=== PATIENT | female | born 1940 | race Caucasian/White ===

== ENCOUNTER 2021-07-01 14:16 | Emergency (ER) | payer MEDICARE, BC ==
[2021-07-01 14:47] VITALS: PULSE 67
[2021-07-01 14:55] LABS: CHLORIDE,CL 104 mEq/L (98-106); SODIUM,NA 141 mEq/L (136-145)
[2021-07-01 15:10] VITALS: BP 160/82
== END 2021-07-01 15:43 | disposition home or self-care (01) ==
LOC: CC.ED 14:16
DX: R42 Dizziness and giddiness (principal); Z88.5 Allergy status to narcotic agent; Z88.1 Allergy status to other antibiotic agents; Z88.2 Allergy status to sulfonamides
CPT/HCPCS: 36415; 70450; 71046; 80053; 81001; 84484; 85025; 86140; 93005; 93010; 99284; 99284-25

== ENCOUNTER 2021-08-22 07:57 | Emergency (ER) | payer MEDICARE, BC ==
[2021-08-22 08:02] VITALS: PULSE 75
[2021-08-22] MEDS ORDERED: Albuterol/Ipratropium 3.0-0.5 MG/3 ML Neb Soln NEB ONE ×2 (08:10→08:57)
[2021-08-22] MEDS ORDERED: Sodium Chloride 0.9% 10 ML Syringe FLUSH PRN (08:54)
[2021-08-22] MEDS ORDERED: methylPREDNISolone Sodium Succinate 125 MG/2 ML SDV IVPUSH STA (08:55)
[2021-08-22 09:49] VITALS: BP 154/76
== END 2021-08-22 11:00 | disposition home or self-care (01) ==
LOC: CC.ED 07:57
DX: J40 Bronchitis, not specified as acute or chronic (principal); I11.0 Hypertensive heart disease with heart failure; I50.9 Heart failure, unspecified; E78.00 Pure hypercholesterolemia, unspecified; E03.9 Hypothyroidism, unspecified; Z88.5 Allergy status to narcotic agent; Z88.1 Allergy status to other antibiotic agents; Z79.82 Long term (current) use of aspirin; Z79.899 Other long term (current) drug therapy; Z86.16 Personal history of COVID-19; Z20.822 Contact with and (suspected) exposure to COVID-19
CPT/HCPCS: 36415; 71046; 80053; 81001; 83605; 83880; 85025; 87040; 87086; 87804; 94640; 96374; 99284; 99284-25; J2930; J7620-GY; U0002

== ENCOUNTER → 2022-07-20 | Day surgery (SDC) | payer MEDICARE, BC ==
[~2022-07-20] MED LIST: Ketamine 200 MG/20 ML MDV ONE; Lactated Ringers 1,000 ML IV SCH; Phenylephrine 1% 10 MG/ML SDV ONE; Propofol 200 MG/20 ML SDV ONE; fentaNYL 50 MCG/ML SDV ONE
[2022-07-20 14:16] VITALS: BP 149/60; PULSE 55
== END ==
LOC: CC.SDS 11:43
PROVIDERS: ATTEND Family Medicine
DX: K57.30 Diverticulosis of large intestine without perforation or abscess without bleeding (principal); K64.8 Other hemorrhoids; J45.909 Unspecified asthma, uncomplicated; K21.9 Gastro-esophageal reflux disease without esophagitis; I10 Essential (primary) hypertension; E78.5 Hyperlipidemia, unspecified; Z88.5 Allergy status to narcotic agent; Z88.2 Allergy status to sulfonamides; Z79.899 Other long term (current) drug therapy; Z79.890 Hormone replacement therapy; Z98.890 Other specified postprocedural states
CPT/HCPCS: J2370; J2704; J3010; J3490; J7120

== ENCOUNTER 2024-01-20 13:39 | Emergency (ER) | payer MEDICARE, BC ==
[2024-01-20 14:00] VITALS: BP 157/72; PULSE 67
[2024-01-20 14:25] LABS: BASOPHILS ABSOLUTE AUTO 0.01 10^3/uL (0.00-0.50); BASOPHILS PERCENT AUTO 0.1 % (0-1); EOSINOPHILS ABSOLUTE AUTO 0.07 10^3/uL (0.00-1.50); HEMATOCRIT 38.7 % (37.0-47.0); HEMOGLOBIN 12.7 g/dL (12.0-16.0); IMMATURE GRAN ABSOLUTE AUTO 0.01 10^3/uL (0.00-0.49); IMMATURE GRAN PERCENT AUTO 0.1 % (0.0-4.9); LYMPHOCYTES ABSOLUTE AUTO 1.95 10^3/uL (0.60-5.00); LYMPHOCYTES PERCENT AUTO 27.5 % (24-44); MEAN CORPUSCULAR HEMOGLOBIN 30.8 pg (27.0-32.0); MEAN CORPUSCULAR HGB CONC 32.8 g/dL (32.0-36.0); MEAN CORPUSCULAR VOLUME 93.9 fL (83.0-97.0); MONOCYTES ABSOLUTE AUTO 0.57 10^3/uL (0.00-1.50); MONOCYTES PERCENT AUTO 8.1 % (0-10); NEUTROPHILS ABSOLUTE AUTO 4.47 x10^3/uL (1.80-8.00); NEUTROPHILS PERCENT AUTO 63.2 % (41-71); PLATELET COUNT,PLT 319 10^3/uL (150-400); RED BLOOD CELL COUNT 4.12 x10^6/uL (4.00-5.50); WHITE BLOOD CELL COUNT,WBC 7.1 10^3/uL (4.0-11.0)
[2024-01-20 14:30] LABS: APPEARANCE,URINE CLEAR (CLEAR); BILIRUBIN,URINE NEGATIVE (NEGATIVE); COLOR,URINE YELLOW (YELLOW); GLUCOSE,URINE NEGATIVE (NEGATIVE); KETONES,URINE NEGATIVE (NEGATIVE); LEUKOCYTE ESTERASE,URINE NEGATIVE (NEGATIVE); NITRITE,URINE NEGATIVE (NEGATIVE); OCCULT BLOOD,URINE NEGATIVE (NEGATIVE); PROTEIN,URINE NEGATIVE (NEGATIVE); UROBILINOGEN,URINE 0.2 EU/dL (0.2-1.0)
[2024-01-20 14:40] LABS: ALBUMIN 3.8 g/dL (3.4-5.0); BILIRUBIN TOTAL 0.3 mg/dL (0.0-1.0); CALCIUM 9.9 mg/dL (8.4-10.1); CREATININE 1.4 mg/dL (0.6-1.0); EST CRCL DRUG DOSING (CG) 24.3 mL/min; MAGNESIUM 1.9 mg/dL (1.8-2.4); POTASSIUM,K 4.5 mEq/L (3.5-5.0); PROTEIN TOTAL,TP 7.1 g/dL (6.4-8.2)
== END 2024-01-20 16:30 | disposition home or self-care (01) ==
LOC: CC.ED 13:39
DX: R42 Dizziness and giddiness (principal); I11.0 Hypertensive heart disease with heart failure; I50.9 Heart failure, unspecified; E78.00 Pure hypercholesterolemia, unspecified; E03.9 Hypothyroidism, unspecified; Z86.16 Personal history of COVID-19; Z90.49 Acquired absence of other specified parts of digestive tract; Z90.710 Acquired absence of both cervix and uterus; Z79.899 Other long term (current) drug therapy; Z79.82 Long term (current) use of aspirin; Z79.891 Long term (current) use of opiate analgesic; Z88.5 Allergy status to narcotic agent; Z88.2 Allergy status to sulfonamides; Z88.8 Allergy status to other drugs, medicaments and biological substances
CPT/HCPCS: 36415; 70450; 71046; 80053; 81003; 83735; 83880; 84484; 85025; 87428-QW; 93010; 99284; 99285

== ENCOUNTER 2024-02-19 09:33 | Emergency (ER) | payer MEDICARE, BC ==
[2024-02-19 10:32] LABS: EOSINOPHILS ABSOLUTE AUTO 0.03 10^3/uL (0.00-1.50); EOSINOPHILS PERCENT AUTO 0.3 % (0-6); HEMATOCRIT 39.9 % (37.0-47.0); HEMOGLOBIN 13.5 g/dL (12.0-16.0); IMMATURE GRAN ABSOLUTE AUTO 0.02 10^3/uL (0.00-0.49); IMMATURE GRAN PERCENT AUTO 0.2 % (0.0-4.9); LYMPHOCYTES ABSOLUTE AUTO 1.95 10^3/uL (0.60-5.00); LYMPHOCYTES PERCENT AUTO 20.8 % (24-44); MEAN CORPUSCULAR HGB CONC 33.8 g/dL (32.0-36.0); MEAN CORPUSCULAR VOLUME 91.7 fL (83.0-97.0); MONOCYTES PERCENT AUTO 6.4 % (0-10); NEUTROPHILS ABSOLUTE AUTO 6.79 x10^3/uL (1.80-8.00); NEUTROPHILS PERCENT AUTO 72.3 % (41-71); PLATELET COUNT,PLT 312 10^3/uL (150-400); RED BLOOD CELL COUNT 4.35 x10^6/uL (4.00-5.50); WHITE BLOOD CELL COUNT,WBC 9.4 10^3/uL (4.0-11.0)
[2024-02-19 10:42] LABS: APPEARANCE,URINE CLEAR (CLEAR); BILIRUBIN,URINE NEGATIVE (NEGATIVE); COLOR,URINE YELLOW (YELLOW); GLUCOSE,URINE NEGATIVE (NEGATIVE); KETONES,URINE NEGATIVE (NEGATIVE); LEUKOCYTE ESTERASE,URINE NEGATIVE (NEGATIVE); NITRITE,URINE NEGATIVE (NEGATIVE); OCCULT BLOOD,URINE NEGATIVE (NEGATIVE); PROTEIN,URINE NEGATIVE (NEGATIVE); UROBILINOGEN,URINE 0.2 EU/dL (0.2-1.0)
[2024-02-19 10:53] LABS: ALANINE AMINOTRANSFERASE,ALT 19 U/L (12-78); ALBUMIN 4.1 g/dL (3.4-5.0); ALKALINE PHOSPHATASE 37 U/L (46-116); ASPARTATE AMNIOTRANSFERASE,AST 28 U/L (15-37); BILIRUBIN TOTAL 0.5 mg/dL (0.0-1.0); BLOOD UREA NITROGEN,BUN 23 mg/dL (7-18); C-REACTIVE PROTEIN < 0.50 mg/dL (<=0.50); CALCIUM 9.9 mg/dL (8.4-10.1); CARBON DIOXIDE,CO2 27 mmol/L (21-32); CHLORIDE,CL 98 mEq/L (98-106); CREATININE 1.1 mg/dL (0.6-1.0); EST CRCL DRUG DOSING (CG) 32.29 mL/min; ESTIMATED GFR 49 mL/min (>=60); GLUCOSE RANDOM 102 mg/dL (75-99); POTASSIUM,K 4.4 mEq/L (3.5-5.0); PRO B-TYPE NATRIUR PEPT,BNPPRO 216 pg/mL (0-1000); PROTEIN TOTAL,TP 7.4 g/dL (6.4-8.2); SODIUM,NA 133 mEq/L (136-145)
[2024-02-19 12:08] LABS: TSH ULTRASENSITIVE 2.88 uIU/mL (0.36-5.60)
[2024-02-19] MEDS: Iopamidol 755 Mg/ML 100 ML Bottle IVPUSH ONE (12:08)
[2024-02-19 12:13] VITALS: BP 168/61; PULSE 59
== END 2024-02-19 14:15 | disposition home or self-care (01) ==
LOC: CC.ED 09:33
DX: R42 Dizziness and giddiness (principal); R06.02 Shortness of breath; R53.1 Weakness; I13.0 Hypertensive heart and chronic kidney disease with heart failure and stage 1 through stage 4 chronic kidney disease, or unspecified chronic kidney disease; I50.9 Heart failure, unspecified; M19.90 Unspecified osteoarthritis, unspecified site; E78.00 Pure hypercholesterolemia, unspecified; E03.9 Hypothyroidism, unspecified; Z88.2 Allergy status to sulfonamides; Z88.8 Allergy status to other drugs, medicaments and biological substances; Z79.82 Long term (current) use of aspirin; Z79.890 Hormone replacement therapy; Z79.899 Other long term (current) drug therapy; Z90.49 Acquired absence of other specified parts of digestive tract; Z90.710 Acquired absence of both cervix and uterus
CPT/HCPCS: 36415; 71045; 71275; 80053; 81003; 83880; 84443; 84484; 85025; 85379; 86140; 87428-QW; 93005; 99285; Q9967

== ENCOUNTER 2024-03-18 07:32 | Inpatient (IN) | payer MEDICARE, BC ==
[2024-03-18 08:47] LABS: BASOPHILS ABSOLUTE AUTO 0.01 10^3/uL (0.00-0.50); BASOPHILS PERCENT AUTO 0.1 % (0-1); HEMATOCRIT 39.7 % (37.0-47.0); HEMOGLOBIN 13.2 g/dL (12.0-16.0); IMMATURE GRAN ABSOLUTE AUTO 0.05 10^3/uL (0.00-0.49); IMMATURE GRAN PERCENT AUTO 0.4 % (0.0-4.9); LYMPHOCYTES ABSOLUTE AUTO 1.09 10^3/uL (0.60-5.00); LYMPHOCYTES PERCENT AUTO 7.9 % (24-44); MEAN CORPUSCULAR HEMOGLOBIN 32.4 pg (27.0-32.0); MEAN CORPUSCULAR HGB CONC 33.2 g/dL (32.0-36.0); MEAN CORPUSCULAR VOLUME 97.3 fL (83.0-97.0); MONOCYTES ABSOLUTE AUTO 0.59 10^3/uL (0.00-1.50); MONOCYTES PERCENT AUTO 4.3 % (0-10); NEUTROPHILS ABSOLUTE AUTO 12.13 x10^3/uL (1.80-8.00); NEUTROPHILS PERCENT AUTO 87.3 % (41-71); PLATELET COUNT,PLT 375 10^3/uL (150-400); RED BLOOD CELL COUNT 4.08 x10^6/uL (4.00-5.50); WHITE BLOOD CELL COUNT,WBC 13.9 10^3/uL (4.0-11.0)
[2024-03-18 08:57] LABS: ALBUMIN 2.8 g/dL (3.4-5.0); BILIRUBIN TOTAL 0.5 mg/dL (0.0-1.0); CALCIUM 8.7 mg/dL (8.4-10.1); CREATININE 1.7 mg/dL (0.6-1.0); EST CRCL DRUG DOSING (CG) 19.65 mL/min; MAGNESIUM 2.2 mg/dL (1.8-2.4); POTASSIUM,K 3.5 mEq/L (3.5-5.0); PROTEIN TOTAL,TP 6.5 g/dL (6.4-8.2)
[2024-03-18 10:03] LABS: APPEARANCE,URINE CLEAR (CLEAR); BILIRUBIN,URINE NEGATIVE (NEGATIVE); COLOR,URINE YELLOW (YELLOW); GLUCOSE,URINE NEGATIVE (NEGATIVE); KETONES,URINE NEGATIVE (NEGATIVE); LEUKOCYTE ESTERASE,URINE SMALL (NEGATIVE); NITRITE,URINE NEGATIVE (NEGATIVE); OCCULT BLOOD,URINE NEGATIVE (NEGATIVE); PROTEIN,URINE NEGATIVE (NEGATIVE); UROBILINOGEN,URINE 0.2 EU/dL (0.2-1.0)
[2024-03-18] MEDS: Sodium Chloride 0.9% 1,000 ML IV SCH (10:03)
[2024-03-18 10:07] LABS: BACTERIA,URINE RARE /HPF (NOT SEEN); EPITHELIAL CELLS,URINE RARE /HPF (NOT SEEN); MUCUS,URINE NOT SEEN /HPF (NOT SEEN); RBC,URINE NOT SEEN /HPF (0-5); WBC,URINE 0-5 /HPF (0-5)
[2024-03-18] MEDS ORDERED: Ondansetron 4 MG Tab.DIS PO PRN (11:05)
[2024-03-18] MEDS ORDERED: Acetaminophen 325 MG Tab PO PRN (11:05)
[2024-03-18] MEDS ORDERED: Ondansetron 4 MG/2 ML SDV IV PRN (11:05)
[2024-03-18] MEDS ORDERED: Albuterol 6.7 GM Inhaler INH PRN (11:05)
[2024-03-18] MEDS ORDERED: Docusate Sodium 100 MG Cap PO PRN (11:05)
[2024-03-18] MEDS: Psyllium with Sucrose Powder 3.4 GM Packet PO SCH ×2 (11:49→15:58)
[2024-03-18] MEDS: Losartan 100 MG Tab PO SCH ×2 (12:17→15:57)
[2024-03-18] MEDS: Meclizine 12.5 MG Tab PO PRN (12:19)
[2024-03-18] MEDS: Levothyroxine 50 MCG Tab PO SCH ×2 (12:19→15:58)
[2024-03-18] MEDS: Multivitamin Tab PO PRN (12:20)
[2024-03-18] MEDS: Spironolactone 25 MG Tab PO SCH ×2 (12:20→15:57)
[2024-03-18] MEDS: Furosemide 20 MG Tab PO SCH ×2 (12:20→15:58)
[2024-03-18] MEDS: Atenolol 50 MG Tab PO SCH ×2 (12:21→15:58)
[2024-03-18] MEDS: Fenofibrate 160 MG Tab PO SCH ×2 (12:21→15:58)
[2024-03-18] MEDS: Formoterol/Mometasone 100-5 MCG 8.8 GM Inhaler INH SCH ×2 (12:21→15:58)
[2024-03-18] MEDS: guaiFENesin 200 MG Tab PO SCH (14:21)
[2024-03-18] MEDS: [UNRECOGNIZED DRUG - OTHER] PO SCH (15:57)
[2024-03-18] MEDS: Enoxaparin 30 MG/0.3 ML Syringe SUBCUT SCH (20:26)
[2024-03-18] MEDS: PARoxetine 20 MG Tab PO SCH (20:27)
[2024-03-18] MEDS: Lactobacillus Rhamnosus GG (Probiotic) Cap PO SCH (20:27)
[2024-03-18] MEDS: Aspirin 325 MG Tab.EC PO SCH (20:27)
[2024-03-18] MEDS: NIACIN 500 MG PO SCH (21:43)
[2024-03-19 07:41] LABS: BASOPHILS ABSOLUTE AUTO 0.03 10^3/uL (0.00-0.50); BASOPHILS PERCENT AUTO 0.5 % (0-1); EOSINOPHILS ABSOLUTE AUTO 0.09 10^3/uL (0.00-1.50); EOSINOPHILS PERCENT AUTO 1.6 % (0-6); HEMATOCRIT 34.5 % (37.0-47.0); HEMOGLOBIN 11.4 g/dL (12.0-16.0); IMMATURE GRAN ABSOLUTE AUTO 0.01 10^3/uL (0.00-0.49); IMMATURE GRAN PERCENT AUTO 0.2 % (0.0-4.9); LYMPHOCYTES PERCENT AUTO 27.9 % (24-44); MEAN CORPUSCULAR HEMOGLOBIN 31.2 pg (27.0-32.0); MEAN CORPUSCULAR VOLUME 94.5 fL (83.0-97.0); MONOCYTES ABSOLUTE AUTO 0.63 10^3/uL (0.00-1.50); NEUTROPHILS ABSOLUTE AUTO 3.38 x10^3/uL (1.80-8.00); NEUTROPHILS PERCENT AUTO 58.8 % (41-71); PLATELET COUNT,PLT 285 10^3/uL (150-400); RED BLOOD CELL COUNT 3.65 x10^6/uL (4.00-5.50); WHITE BLOOD CELL COUNT,WBC 5.7 10^3/uL (4.0-11.0)
[2024-03-19 07:53] LABS: ALBUMIN 2.9 g/dL (3.4-5.0); BILIRUBIN TOTAL 0.4 mg/dL (0.0-1.0); C-REACTIVE PROTEIN 0.78 mg/dL (<=0.50); CALCIUM 8.8 mg/dL (8.4-10.1); CREATININE 0.9 mg/dL (0.6-1.0); EST CRCL DRUG DOSING (CG) 37.12 mL/min; POTASSIUM,K 3.9 mEq/L (3.5-5.0); PROTEIN TOTAL,TP 5.9 g/dL (6.4-8.2)
[2024-03-20 07:55] VITALS: BP 173/66; PULSE 61
== END 2024-03-20 09:15 | DRG 684 ==
LOC: SUPCPDRO 07:32 → CC.ED 07:32 → CC.MS 10:13 → UNDOADMIN 10:40 → CC.MS 10:40
PROVIDERS: ADMIT Physician Assistant Medical; ATTEND Physician Assistant Medical
DX: N17.9 Acute kidney failure, unspecified (principal); R13.10 Dysphagia, unspecified; I11.0 Hypertensive heart disease with heart failure; E78.00 Pure hypercholesterolemia, unspecified; I10 Essential (primary) hypertension; Z88.5 Allergy status to narcotic agent; I50.9 Heart failure, unspecified; K58.9 Irritable bowel syndrome, unspecified; F32.A Depression, unspecified; F41.9 Anxiety disorder, unspecified; E03.9 Hypothyroidism, unspecified; D64.9 Anemia, unspecified; Z96.659 Presence of unspecified artificial knee joint; E86.0 Dehydration; Z79.82 Long term (current) use of aspirin; Z79.51 Long term (current) use of inhaled steroids; Z79.1 Long term (current) use of non-steroidal anti-inflammatories (NSAID); Z79.899 Other long term (current) drug therapy; Z90.89 Acquired absence of other organs; Z90.49 Acquired absence of other specified parts of digestive tract; Z98.890 Other specified postprocedural states; Z90.710 Acquired absence of both cervix and uterus; Z79.02 Long term (current) use of antithrombotics/antiplatelets; Z88.2 Allergy status to sulfonamides; Z88.8 Allergy status to other drugs, medicaments and biological substances
CPT/HCPCS: 36415; 70450; 71046; 80053; 81001; 83735; 83880; 84484; 85025; 86140; 99285; J7030; 87426-QW; 97161-GP; 97530-GP; A9270-GY; J1650